=== PATIENT | female | born 1950 | race Caucasian/White ===

== ENCOUNTER 2023-08-16 14:39 | Outpatient (AMB) | payer MEDICARE, SELFPAY ==
--- NOTE | 2023-08-16 14:43 | A.OFFVIS_ITS ---
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 Accompanied by: Self / Same As Patient Allergies benzonatate [From TESSALON PERLES] Allergy (Severe, Verified 08/16/23 14:52) THROAT CLOSES codeine [CODEINE] Allergy (Severe, Verified 08/16/23 14:52) THROAT CLOSES Penicillins [PENICILLINS] Allergy (Intermediate, Verified 08/16/23 14:52) FULL BODY RASH oxycodone Allergy (Unknown, Verified 08/16/23 14:52) Anaphylaxis HPI low back pain/ CONFIRMED 2 HPI0 Details Patient is a pleasant 72 years old female with history of lumbar disc surgery in 1984 at [facility] [place], [place], left ankle fusion 04/04/23 at [facility], chronic low back, cervical and lumbar DDD, polymyalgia rheumatica, presents today with axial low back pain with prolonged standing. Denies any recent trauma, injury or falls. Pain radiates to upper buttocks and lateral hips. Patient had previous lower back and greater trochanteric trigger point injections by Dr. Caldwell at [facility] and lumbar facet asacroiliac joint injections at [facility] with good results. Patient reports previous SIJ injections provided her pain relief for several years. Per referral notes, previous lumbar spine xray showed multilevel degenerative disc disease with severe disc space collapse at L5-S1. MRI of lumbar spine showed no severe stenosis or nerve root impingement. There is slight crowding of the left S1 nerve root at the surgical site. Degenerative joint disease and degenerative disc disease noted. Patient reports these imaging reports were done over 3-5 years ago. She notices her back pain has been progressively worsening and significantly affects her daily activites and functions, sleep, mobility, mood, social interactions and quality of life. Pain is present upon awaking in the morning and is persistent during the day with movements. Denies any fever, weight changes, abdominal or groin pain, bladder or bowel dysfunction or saddle anesthesia. Location Lower back radiating to buttocks and lateral hips Duration Chronic pain for many years Characteristics of symptom or complaint Stabbing, hot burning, radiating, spreading, aching Aggravating or associated factors Prolonged standing, walking, changing positions, weather changes pain 10/10 Relieving factors Rest, sitting, NSAIDs -pain 0-2/10 Treatment PT- 1 year ago no improvement, TPIs and injections, TENS unit at PT [facility] Medical History (Updated 08/17/23 @ 23:14 by DASHAWN Hernandez) Carpal tunnel syndrome Right bundle branch block Polymyalgia rheumatica ALYSSA (obstructive sleep apnea) Hypertension Hyperlipidemia Type 2 diabetes mellitus Social History (Updated 08/16/23 @ 14:54 by Lala Chakraborty) Alcohol intake: current Alcohol intake frequency: holidays/special occasions only Alcohol type: wine Patient Tobacco Use Status: Never used Tobacco Review of Systems Const All systems reviewed & are unremarkable except as noted in HPI and below Physical Exam Vital Signs: Last Vital Signs BP 138/66 08/16/23 14:51 Pulse Ox 99 08/16/23 14:51 Oxygen Delivery Method Room Air 08/16/23 14:51 BMI result Body Mass Index 45.4 General: Appears afebrile. Alert and oriented. Mood and affect appropriate. Follows and participates in conversation appropriately. Respiratory effort is unlabored. No cough. Able to transition from sit to stand unassisted. Ambulates with bilaterally normal heel strike and toe off, except left foot due to recent ankle fusion surgery. Back/Spine/Pelvis Other: Lumbar ROM are limited due to pain, worse pain with extension than flexion. Mildly antalgic gait. No limping. Demonstrates 5/5 strength of quadriceps bilaterally as well as flexion/dorsiflexion of right foot against resistance. Left foot not examined, s/p left ankle fusion. 2+ pedal pulses bilaterally. Seated/Supine straight leg rise with dorsiflexion negative bilaterally. +1 patellar bilateral and +1 achilles reflexes right. Facet loading test positive bilaterally. Chantal sign, Sean?s, Gaenslen, Pelvic compression and Stinchfield tests are positive bilaterally. No groin pain with I/E hip rotations. Mild TTP bilateral GTBs. Valsalva maneuver negative. Cervical Spine: cervical ROM normal and No Cervical spine tenderness Thoracic/Lumbar Spine: thoracic and lumbar spine normal to inspection, Thoracic/lumbar spine scar(s), Lasegue's sign negative, straight leg raise negative bilaterally, pain with thoraco-lumbar ROM, paraspinal muscle tenderness, thoraco-lumbar ROM limited, No thoracic spinal tenderness and lumbar spinal tenderness Pelvis: buttock tenderness bilaterally Sacroiliac joints: bilaterally tender to palpation Results Reviewed Results Reviewed: US TRIPLEX LOWER EXTREMITY, LEFT 07/05/23 at [facility] CLINICAL INFORMATION: Left calf pain and swelling FINDINGS: Respiratory variation, normal compression and vessel patency are noted throughout the visualized deep venous systems of the lower extremity. The visualized common femoral vein, femoral vein, profunda femoral vein, and popliteal vein segments show no evidence for deep vein thrombosis. Limited visualization of the calf veins demonstrates evidence of flow. The contralateral common femoral vein demonstrates normal respiratory variation. There is no Noriega''s cyst. IMPRESSION: No evidence of deep vein thrombosis in the visualized deep venous systems of the left leg. CT ANKLE WITHOUT CONTRAST, LEFT 02/22/23 at [facility] IMPRESSION: Postsurgical changes related to triple arthrodesis. Mild to moderately comminuted intra-articular fracture of the lateral dome of the talus. Prominent osseous bridging across the posterior subtalar joint. Prominent osseous bridging across the talonavicular joint and calcaneal cuboid joint. 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 Assessment & Plan Assessment & Plan (1) Bilateral hip pain: Code(s): M25.551 - Pain in right hip; M25.552 - Pain in left hip (2) Sacroiliac joint pain: Code(s): M53.3 - Sacrococcygeal disorders, not elsewhere classified (3) Lumbar degenerative disc disease: Code(s): M51.36 - Other intervertebral disc degeneration, lumbar region (4) Lumbar post-laminectomy syndrome: Code(s): M96.1 - Postlaminectomy syndrome, not elsewhere classified Plan Lumbar spine and hip with pelvic views imaging to assess degree of degenerative changes, any subluxation, listhesis or pars defects. Briefly discused interventional treatments for axial low back pain, including diagnostic lumbar medial branch blocks for potential Sprint PNS trial or RFA treatments. Informational pamphlets provided to patient. Also discussed sacroiliac joint vs hip injections. Patient's pain is most consistent today with facetogenic and SIJ related pain. Patient will return to the clinic to discuss results of the xray findings when it is done and consider interventional therapy as indicated. All questions and concerns have been answered and patient agreed with the plan. Follow up for xray results and sooner as needed. Orders: Orders 2 XR hip BI w PEL1V 08/16/23 M25.551 - Pain in right hip, M25.552 - Pain in left hip, M53.3 - Sacrococcygeal disorders, not elsewhere classified XR lumbar spine 2-3V 08/16/23 M51.36 - Other intervertebral disc degeneration, lumbar region Coding Level of Care Code New Pt Level 4 (45699) Diagnoses Bilateral hip pain M25.551; M25.552 Sacroiliac joint pain M53.3 Lumbar degenerative disc disease M51.36 Lumbar post-laminectomy syndrome M96.1
[2023-08-16 14:51] VITALS: BP 138/66; O2SAT 99; BMI 45.4
== END 2023-08-16 15:29 | disposition home or self-care (01) ==
PROVIDERS: PCP Internal Medicine; Visit Provider Nurse Practitioner Family
DX: M25.551 Pain in right hip (principal); M25.552 Pain in left hip; M53.3 Sacrococcygeal disorders, not elsewhere classified; M51.36 Other intervertebral disc degeneration, lumbar region; M96.1 Postlaminectomy syndrome, not elsewhere classified
CPT/HCPCS: 99204

== ENCOUNTER 2023-08-16 14:39 | Outpatient (REF) | payer MEDICARE, SELFPAY ==
--- NOTE | ~2023-08-16 | XR_ITS ---
EXAMINATION: XR LUMBOSACRAL SPINE CLINICAL INFORMATION: Pain in lumbar spine COMPARISON: None available. TECHNIQUE: Three views of the lumbosacral spine. FINDINGS: There are multilevel degenerative changes with grade 1 anterior listhesis of L4 over L5 with disc space narrowing, and facets arthropathy is at the level of L2-L3, L3-for L4-L5 L5-S1. Pedicles are preserved. Sacroiliac joints unremarkable. Soft tissues are normal. XR/XR lumbar spine 2-3V IMPRESSION: Multilevel degenerative changes and grade 1 anterior listhesis of L4 over L5
--- NOTE | ~2023-08-16 | XR_ITS ---
EXAMINATION: XR BILATERAL HIPS WITH AP PELVIS CLINICAL INFORMATION: Sacrococcygeal disorder with hip pain COMPARISON: None available. TECHNIQUE: AP view of the pelvis and single views of each hip were obtained. FINDINGS: No fracture. Hip joint spaces are maintained. Alignment is anatomic. Sacroiliac joints and pubic symphysis are normal. No abnormal soft tissue calcifications. XR/XR hip BI w PEL1V IMPRESSION: Normal pelvis and hips.
== END 2023-08-16 14:40 | disposition home or self-care (01) ==
LOC: HO.XRAY 14:39
PROVIDERS: PCP Internal Medicine; Visit Provider Nurse Practitioner Family
DX: M25.551 Pain in right hip (principal); M25.552 Pain in left hip; M51.36 Other intervertebral disc degeneration, lumbar region; M53.3 Sacrococcygeal disorders, not elsewhere classified
CPT/HCPCS: 72100; 73521

== ENCOUNTER 2023-09-01 12:51 | Outpatient (AMB) | payer MEDICARE, SELFPAY ==
--- NOTE | 2023-09-01 13:03 | A.OFFVIS_ITS ---
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 Denies any recent cough, cold, infection, fever or other significant changes in medical history since last office visit. Patient denies any bladder or bowel incontinence or saddle anesthesia. PRIOR: Patient is a pleasant 72 years old female with [place] [facility] [place] ankle fusion 04/04/23 at [facility], chronic low back, cervical and lumbar DDD, polymyalgia rheumatica, presents today with axial low back pain with prolonged standing. Denies any recent trauma, injury or falls. Pain radiates to upper buttocks and lateral hips. Patient had previous lower back and greater trochanteric trigger point injections by Dr. Caldwell at [facility] and lumbar facet asacroiliac joint injections at [facility] with good results. Patient reports previous SIJ injections provided her pain relief for several years. Per referral notes, previous lumbar spine xray showed multilevel degenerative disc disease with severe disc space collapse at L5-S1. MRI of lumbar spine showed no severe stenosis or nerve root impingement. There is slight crowding of the left S1 nerve root at the surgical site. Degenerative joint disease and degenerative disc disease noted. Patient reports these imaging reports were done over 3-5 years ago. She notices her back pain has been progressively worsening and significantly affects her daily activites and functions, sleep, mobility, mood, social interactions and quality of life. Pain is present upon awaking in the morning and is persistent during the day with movements. Denies any fever, weight changes, abdominal or groin pain, bladder or bowel dysfunction or saddle anesthesia. Location Lower back radiating to buttocks and lateral hips Duration Chronic pain for many years Characteristics of symptom or complaint Stabbing, hot burning, radiating, spreading, aching Aggravating or associated factors Prolonged standing, walking, changing positions, weather changes pain 08/30 Relieving factors Rest, sitting, NSAIDs -pain 0-2/10 Treatment PT- 1 year ago no improvement, TPIs and injections, T[facility] unit at [facility] Medical History Carpal tunnel syndrome Right bundle branch block Polymyalgia rheumatica ALYSSA (obstructive sleep apnea) Hypertension Hyperlipidemia Type 2 diabetes mellitus Social History Alcohol intake: current Alcohol intake frequency: holidays/special occasions only Alcohol type: wine Patient Tobacco Use Status: Never used Tobacco Review of Systems Const All systems reviewed & are unremarkable except as noted in HPI and below Physical Exam Vital Signs: Last Vital Signs Pulse 82 09/01/23 13:06 BP 146/70 H 09/01/23 13:06 Pulse Ox 99 09/01/23 13:06 Oxygen Delivery Method Room Air 09/01/23 13:06 BMI result Body Mass Index 45.6 General: Appears afebrile. Alert and oriented. Mood and affect appropriate. Follows and participates in conversation appropriately. Respiratory effort is unlabored. No cough. Able to transition from sit to stand unassisted. Ambulates with bilaterally normal heel strike and toe off, except left foot due to recent ankle fusion surgery. Back/Spine/Pelvis Other: Lumbar ROM are limited due to pain, worse pain with extension than flexion. Chantal sign, Sean?s, Gaenslen, Pelvic compression and Stinchfield tests are positive bilaterally. No groin pain with I/E hip rotations. Mild TTP bilateral GTBs. Valsalva maneuver negative. Cervical Spine: cervical ROM normal and No Cervical spine tenderness Thoracic/Lumbar Spine: thoracic and lumbar spine normal to inspection, Thoracic/lumbar spine scar(s), Lasegue's sign negative, straight leg raise negative bilaterally, pain with thoraco-lumbar ROM, paraspinal muscle tenderness, thoraco-lumbar ROM limited, No thoracic spinal tenderness and lumbar spinal tenderness Pelvis: buttock tenderness bilaterally and no sciatic notch tenderness Sacroiliac joints: bilaterally tender to palpation Results Reviewed Results Reviewed: XR LUMBOSACRAL SPINE 08/16/23 FINDINGS: There are multilevel degenerative changes with grade 1 anterior listhesis of L4 over L5 with disc space narrowing, and facets arthropathy is at the level of L2-L3, L3-for L4-L5 L5-S1. Pedicles are preserved. Sacroiliac joints unremarkable. Soft tissues are normal. IMPRESSION: Multilevel degenerative changes and grade 1 anterior listhesis of L4 over L5 XR BILATERAL HIPS WITH AP PELVIS 08/16/23 FINDINGS: No fracture. Hip joint spaces are maintained. Alignment is anatomic. Sacroiliac joints and pubic symphysis are normal. No abnormal soft tissue calcifications. IMPRESSION: Normal pelvis and hips. Assessment & Plan Assessment & Plan (1) Bilateral hip pain: Code(s): M25.551 - Pain in right hip; M25.552 - Pain in left hip (2) Sacroiliac joint pain: Code(s): M53.3 - Sacrococcygeal disorders, not elsewhere classified (3) Lumbar degenerative disc disease: Code(s): M51.36 - Other intervertebral disc degeneration, lumbar region (4) Lumbar post-laminectomy syndrome: Code(s): M96.1 - Postlaminectomy syndrome, not elsewhere classified Plan Lumbar spine and hip with pelvic imaging results were discussed with patient and are noted above. Per patient's referral review, patient has undergone bilateral L4/L5 and L5/S1 facet injections and therapeutic left SIJ injections at [facility] as well as greater trochanteric trigger point injections by Dr. Caldwell at [facility] with good results. She is interested to proceed with therapeutic injections for her chronic SIJ pain. For ongoing low back pain with radiation into upper buttocks and lateral hips, we will proceed with Bilateral Therapeutic Sacroiliac Joint Injections with local and fluoroscopy. Expectations, risks and benefits were reviewed. Patient is aware she will be contacted to schedule this procedure. Counseled patient on vigilance in checking and treatment of hyperglycemia following steroid injection. All questions were answered and the patient is in agreement of plan. Follow-up after injections and sooner as needed. Coding Level of Care Code Est Pt Level 4 (19707) Diagnoses Bilateral hip pain M25.551; M25.552 Sacroiliac joint pain M53.3 Lumbar degenerative disc disease M51.36 Lumbar post-laminectomy syndrome M96.1
[2023-09-01 13:06] VITALS: BP 146/70; PULSE 82; O2SAT 99; BMI 45.6
== END 2023-09-01 13:26 | disposition home or self-care (01) ==
PROVIDERS: PCP Internal Medicine; Visit Provider Nurse Practitioner Family
DX: M25.551 Pain in right hip (principal); M25.552 Pain in left hip; M53.3 Sacrococcygeal disorders, not elsewhere classified; M51.36 Other intervertebral disc degeneration, lumbar region; M96.1 Postlaminectomy syndrome, not elsewhere classified
CPT/HCPCS: 99214

== ENCOUNTER → 2023-09-01 12:51 | Outpatient (BNVA) | payer MEDICARE, SELFPAY | PROVIDERS: PCP Internal Medicine; Visit Provider Nurse Practitioner Family | DX: M25.551 Pain in right hip (principal); M25.552 Pain in left hip; M53.3 Sacrococcygeal disorders, not elsewhere classified; M51.36 Other intervertebral disc degeneration, lumbar region; M96.1 Postlaminectomy syndrome, not elsewhere classified | CPT/HCPCS: 99212 ==

== ENCOUNTER 2023-10-12 05:57 | Outpatient (REF) | payer MEDICARE, SELFPAY ==
--- NOTE | ~2023-10-12 | FL_ITS ---
EXAMINATION: XR FLUOROSCOPY WITH IMAGES CLINICAL INFORMATION: Sacrococcygeal disorders, not elsewhere classified. Bilateral sacroiliac joint injection. COMPARISON: None available. TECHNIQUE: Fluoroscopy Supervised By: Dr. Dontrell Becerril. Fluoroscopy Time: 0.2 minutes. Cumulative Dose: 15.2 mGy. DAP: 1.18 Gycm2. Images: 4. FINDINGS: Images demonstrate needle placement over the bilateral sacroiliac joints FL/FL guidance in treatment room IMPRESSION: Fluoroscopy guidance for pain management procedure
== END 2023-10-12 05:58 | disposition home or self-care (01) ==
LOC: CF 05:57
PROVIDERS: Visit Provider Internal Medicine
DX: M53.3 Sacrococcygeal disorders, not elsewhere classified (principal)
CPT/HCPCS: 27096; J1040; J2795

== ENCOUNTER 2023-10-12 07:37 | Outpatient (AMB) | payer MEDICARE, SELFPAY ==
[2023-10-12 07:42] VITALS: BP 122/70; PULSE 75; RESP 16; O2SAT 96; BMI 45.6
--- NOTE | 2023-10-12 07:42 | A.OFFVIS_ITS ---
Intake Vital Signs 10/12/23 07:42 10/12/23 08:36 Height 4 ft 10 in 4 ft 10 in Weight 218 lb 218 lb BMI 45.6 45.6 BP 122/70 128/72 Blood Pressure Location Lt radial Lt brachial Position Sitting Sitting Respiration 16 18 Pulse 75 80 Pulse Source Pulse Oximeter Pulse Oximeter Pulse Oximetry (%) 96 98 Oxygen Delivery Method Room Air Room Air Comment Pre-Op Post-Op Intake Visit Reasons: Dino theraputic SIJ inj Allergies benzonatate [From TESSALON PERLES] Allergy (Severe, Verified 09/01/23 13:07) THROAT CLOSES codeine [CODEINE] Allergy (Severe, Verified 09/01/23 13:07) THROAT CLOSES Penicillins [PENICILLINS] Allergy (Intermediate, Verified 09/01/23 13:07) FULL BODY RASH oxycodone Allergy (Unknown, Verified 09/01/23 13:07) Anaphylaxis HPI Dino theraputic SIJ inj HPI Details Patient presents for scheduled procedure. Denies any recent cough, cold, infection, fever or other significant changes in medical history since last office visit. [facility] Medical History Carpal tunnel syndrome Right bundle branch block Polymyalgia rheumatica ALYSSA (obstructive sleep apnea) Hypertension Hyperlipidemia Type 2 diabetes mellitus Alcohol intake: current Alcohol intake frequency: holidays/special occasions only Alcohol type: wine Patient Tobacco Use Status: Never used Tobacco Physical Exam Vital Signs: Last Vital Signs Pulse 75 10/12/23 07:42 Resp 16 10/12/23 07:42 BP 122/70 10/12/23 07:42 Pulse Ox 96 10/12/23 07:42 Oxygen Delivery Method Room Air 10/12/23 07:42 BMI result Body Mass Index 45.6 Office Procedures Joint Injection/Drain Joint Injection/Drain Details: Sacroiliac Joint Injection, Bilateral The procedure, its benefits, and its risks were explained and written informed consent was obtained from the patient. Immediately prior to starting the procedure, a time-out safety check was conducted. The patient's identification, procedure name, procedure site, and procedure laterality were confirmed with the patient. ? Patient was placed prone on the fluoroscopy table and the lumbosacral area was prepped using ChloraPrep and draped with sterile drapein standard fashion. The C-arm was rotated in a contralateral oblique fashion until the medial border of the iliac crest no longer foreshadowed the posterior sacroiliac joint line. The skin and subcutaneous tissue was anesthetized using 1 mL of 0.75% plain lidocaine with 1.5-inch 25-gauge needle in the middle region of the joint line.? A 3.5-inch 22-gauge spinal needle with small bend on the tip was slowly advanced towards the joint line, coaxial to the x-ray beam. Once bony content was obtained, the needle was easily slid into the intra-articular space.? Intra- articular needle position was confirmed using lateral fluoroscopy.? A total volume of 2 mL of solution containing 40 mg Depomedrol and rest 0.75% lidocaine was injected intra-articularly. The stylet was reinserted and needle was removed. The same procedure was repeated on the other side. The patient tolerated the procedure well. Patient denied any lower extremity weakness or numbness. Patient was observed for 30 min and was discharged after fulfilling the standard discharge criteria. Coding 85131 - Sacroiliac (bilateral) Procedure code (CPT) selection complete Assessment & Plan Assessment & Plan (1) Sacroiliac joint pain: Code(s): M53.3 - Sacrococcygeal disorders, not elsewhere classified Plan Patient is status post bilateral intra-articular SIJ injection. Patient tolerated procedure well and was discharged home in stable condition with discharge instructions. All questions were answered. We will follow-up via telephone or in clinic to assess response to therapy. A follow-up appointment was made during today's visit. Orders: Orders FL guidance in treatment room Today M53.3 - Sacrococcygeal disorders, not elsewhere classified Coding Level of Care Code Procedure Only Diagnoses Sacroiliac joint pain M53.3 CPT Codes Coding - Joint 9: 55459 - Sacroiliac ([id number])
[2023-10-12 08:36] VITALS: BP 128/72; PULSE 80; RESP 18; O2SAT 98; BMI 45.6
== END 2023-10-12 08:28 | disposition home or self-care (01) ==
LOC: HO.PMCPRC 07:37
PROVIDERS: PCP Internal Medicine; Visit Provider Internal Medicine
DX: M53.3 Sacrococcygeal disorders, not elsewhere classified (principal)
CPT/HCPCS: 27096

== ENCOUNTER 2023-10-20 08:21 | Outpatient (AMB) | payer MEDICARE, SELFPAY ==
--- NOTE | 2023-10-20 08:27 | MHC.OFFVIS ---
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 Required: No Accompanied by: Self / Same As Patient Allergies benzonatate [From TESSALON PERLES] Allergy (Severe, Verified 09/01/23 13:07) THROAT CLOSES codeine [CODEINE] Allergy (Severe, Verified 09/01/23 13:07) THROAT CLOSES Penicillins [PENICILLINS] Allergy (Intermediate, Verified 09/01/23 13:07) FULL BODY RASH oxycodone Allergy (Unknown, Verified 09/01/23 13:07) Anaphylaxis Medication List - Last Reconciled 10/20/23 by DASHAWN Hernandez diclofenac sodium 1% (Arthritis Pain (diclofenac)) 4 grams topical QID hydrochlorothiazide 25 mg PO DAILY losartan 50 mg PO DAILY meloxicam 7.5 mg PO DAILY metformin 1,000 mg PO BID pioglitazone 30 mg PO DAILY HPI HPI Comments History of Present Illness Details Patient presents today to assess response to Bilateral Therapeutic Sacroiliac Joint Injections on 10/12/[address] Becerril. Patient reports ongoing 70-80% pain relief in the projection of lower back but continues to endorse bilateral lateral hip pain. Upon exam, she has significant localized tenderness in both greater trochanteric bursas. Patient reports improvement in her mobility and functioning after sacroiliac joint injection but continues to be uncomfortable with sitting or sleeping on her sides due to lateral hip pain on both sides. Patient also reports ongoing left foot and ankle discomfort since left ankle fusion in March. She follows with [facility] for this. Patient is interested to undergo formal course of physical therapy for sacroiiac joint pain and ongoing left foot pain. Denies any recent cough, cold, infection, fever or other significant changes in medical history since last office visit. Patient denies any bladder or bowel incontinence or saddle anesthesia. Past Procedures: 10/12/23: Bilateral Therapeutic Sacroiliac Joint [id number]% pain relief PRIOR: Patient is a pleasant 72 years old female with history of lumbar disc surgery in 1984 at [facility], left ankle fusion 04/04/23 at [facility], chronic low back, cervical and lumbar DDD, polymyalgia rheumatica, presents today with axial low back pain with prolonged standing. Denies any recent trauma, injury or falls. Pain radiates to upper buttocks and lateral hips. Patient had previous lower back and greater trochanteric trigger point injections by Dr. Caldwell at [facility] and lumbar facet asacroiliac joint injections at [facility] with good results. Patient reports previous SIJ injections provided her pain relief for several years. Per referral notes, previous lumbar spine xray showed multilevel degenerative disc disease with severe disc space collapse at L5-S1. MRI of lumbar spine showed no severe stenosis or nerve root impingement. There is slight crowding of the left S1 nerve root at the surgical site. Degenerative joint disease and degenerative disc disease noted. Patient reports these imaging reports were done over 3-5 years ago. She notices her back pain has been progressively worsening and significantly affects her daily activites and functions, sleep, mobility, mood, social interactions and quality of life. Pain is present upon awaking in the morning and is persistent during the day with movements. Denies any fever, weight changes, abdominal or groin pain, bladder or bowel dysfunction or saddle anesthesia. Location Lower back radiating to buttocks and lateral hips Duration Chronic pain for many years Characteristics of symptom or complaint Stabbing, hot burning, radiating, spreading, aching Aggravating or associated factors Prolonged standing, walking, changing positions, weather changes pain 10/10 Relieving factors Rest, sitting, NSAIDs -pain 0-2/10 Treatment PT- 1 year ago no improvement, TPIs and injections, TENS unit at PT [facility] Medical History (Updated 10/20/23 @ 08:50 by DASHAWN Hernandez) Carpal tunnel syndrome Right bundle branch block Polymyalgia rheumatica ALYSSA (obstructive sleep apnea) Hypertension Hyperlipidemia Type 2 diabetes mellitus Surgical History (Updated 10/20/23 @ 08:50 by DASHAWN Hernandez) S/P foot surgery, left Social History Alcohol intake: current Alcohol intake frequency: holidays/special occasions only Alcohol type: wine Patient Tobacco Use Status: Never used Tobacco Review of Systems Const All systems reviewed & are unremarkable except as noted in HPI and below Physical Exam Vital Signs: Last Vital Signs Pulse 69 10/20/23 08:31 BP 146/69 H 10/20/23 08:31 Pulse Ox 97 10/20/23 08:31 Oxygen Delivery Method Room Air 10/20/23 08:31 BMI result Body Mass Index 45.8 General: Appears afebrile. Alert and oriented. Mood and affect appropriate. Follows and participates in conversation appropriately. Respiratory effort is unlabored. No cough. Able to transition from sit to stand unassisted. Uses cane with ambulation. Ambulates with bilaterally normal heel strike and toe off, except left foot due to ankle fusion surgery in March. Back/Spine/Pelvis Other: Lumbar ROM are limited due to mild pain with extension. Sean's test reproduces mild pain bilaterally s/p therapeutic injections. No groin pain with I/E hip rotations. Moderate to severe TTP bilateral GTBs. Cervical Spine: cervical ROM normal and No Cervical spine tenderness Thoracic/Lumbar Spine: thoracic and lumbar spine normal to inspection, Thoracic/lumbar spine scar(s), Lasegue's sign negative, straight leg raise negative bilaterally, thoraco-lumbar ROM limited, No thoracic spinal tenderness and lumbar spinal tenderness at L4 and at L5 Sacroiliac joints: bilaterally tender to palpation Extrem General: Yes capillary refill normal, Yes no calf tenderness, No clubbing, No cyanosis and Yes pedal edema (left foot) Results Reviewed Results Reviewed: XR LUMBOSACRAL SPINE 08/16/23 FINDINGS: There are multilevel degenerative changes with grade 1 anterior listhesis of L4 over L5 with disc space narrowing, and facets arthropathy is at the level of L2-L3, L3-for L4-L5 L5-S1. Pedicles are preserved. Sacroiliac joints unremarkable. Soft tissues are normal. IMPRESSION: Multilevel degenerative changes and grade 1 anterior listhesis of L4 over L5 XR BILATERAL HIPS WITH AP PELVIS 08/16/23 FINDINGS: No fracture. Hip joint spaces are maintained. Alignment is anatomic. Sacroiliac joints and pubic symphysis are normal. No abnormal soft tissue calcifications. IMPRESSION: Normal pelvis and hips. Assessment & Plan Assessment & Plan (1) Greater trochanteric bursitis of both hips: Code(s): M70.61 - Trochanteric bursitis, right hip; M70.62 - Trochanteric bursitis, left hip (2) Bilateral hip pain: Code(s): M25.551 - Pain in right hip; M25.552 - Pain in left hip (3) Sacroiliac joint pain: Code(s): M53.3 - Sacrococcygeal disorders, not elsewhere classified (4) Left foot pain: Code(s): M79.672 - Pain in left foot (5) S/P foot surgery, left: Code(s): Z98.890 - Other specified postprocedural states Plan Patient is status post bilateral therapeutic SIJ injections on 10/12/23 with good results. She will continue to monitor longevity and effectiveness of steroid injections and notify our office when her pain returns to baseline. Script for physical therapy provided for SIJ, GTB tenderness and left foot pain to be done at [facility] per patient's request. Schedule Bilateral Therapeutic GTB steroid injections with local and US guidance for lateral hip and GTB tenderness. Counseled patient on vigilance in checking and treatment of hyperglycemia following steroid injection. Hold Meloxicam for 5 days prior to injections. Expectations, risks and benefits were reviewed. Patient is aware she will be contacted to schedule this procedure. All questions were answered and the patient is in agreement of plan. Follow-up after injections and sooner as needed. Orders: Orders PT Evaluation and Treatment Today M25.551 - Pain in right hip, M25.552 - Pain in left hip, M53.3 - Sacrococcygeal disorders, not elsewhere classified, M70.61 - Trochanteric bursitis, right hip, M70.62 - Trochanteric bursitis, left hip, M79.672 - Pain in left foot, Z98.890 - Other specified postprocedural states Medications: New diclofenac sodium 1% (Arthritis Pain (diclofenac)) 4 grams topical QID 100 grams 0RF pain M70.61 - Trochanteric bursitis, right hip, M70.62 - Trochanteric bursitis, left hip Coding Level of Care Code Est Pt Level 4 (28202) Diagnoses Greater trochanteric bursitis of both hips M70.61; M70.62 Bilateral hip pain M25.551; M25.552 Sacroiliac joint pain M53.3 Left foot pain M79.672 S/P foot surgery, left Z98.890
[2023-10-20 08:31] VITALS: BP 146/69; PULSE 69; O2SAT 97; BMI 45.8
== END 2023-10-20 08:53 | disposition home or self-care (01) ==
PROVIDERS: PCP Internal Medicine; Visit Provider Nurse Practitioner Family
DX: M70.61 Trochanteric bursitis, right hip (principal); M70.62 Trochanteric bursitis, left hip; M25.551 Pain in right hip; M25.552 Pain in left hip; M53.3 Sacrococcygeal disorders, not elsewhere classified; M79.672 Pain in left foot; Z98.890 Other specified postprocedural states
CPT/HCPCS: 99214

== ENCOUNTER → 2023-10-20 08:21 | Outpatient (BNVA) | payer MEDICARE, SELFPAY | PROVIDERS: PCP Internal Medicine; Visit Provider Nurse Practitioner Family | DX: M70.61 Trochanteric bursitis, right hip (principal); M70.62 Trochanteric bursitis, left hip; M25.551 Pain in right hip; M25.552 Pain in left hip; M53.3 Sacrococcygeal disorders, not elsewhere classified; M79.672 Pain in left foot; Z98.890 Other specified postprocedural states | CPT/HCPCS: 99212 ==

== ENCOUNTER 2023-11-30 05:42 | Outpatient (REF) | payer MEDICARE, SELFPAY ==
--- NOTE | ~2023-11-30 | FL_ITS ---
CLINICAL INDICATION: Bilateral hip pain. Trochanteric bursitis. FINDINGS: Technical assistance and equipment were provided by the Department of Radiology during intraoperative fluoroscopy for percutaneous injection. 2, limited fluoroscopic spot images are submitted. A radiologist was not present during the procedure. Images demonstrate the tips of percutaneous needles to project just lateral to the greater trochanters of each of the hips. Contrast is injected. The images are available for review on PACS. TOTAL FLUOROSCOPY TIME: 0.1 minutes. DOSE AREA PRODUCT: 0.02 mGy-m2 (milligray-meter squared) FL/FL guidance in treatment room IMPRESSION: Technical assistance and equipment provided by the Department of Radiology during intraoperative fluoroscopy, as above. Please see operative report for further details.
== END 2023-11-30 05:43 | disposition home or self-care (01) ==
LOC: CF 05:42
PROVIDERS: Visit Provider Internal Medicine
DX: M70.61 Trochanteric bursitis, right hip (principal); M70.62 Trochanteric bursitis, left hip
CPT/HCPCS: 20610; J2795; J3301; Q9967

== ENCOUNTER 2023-11-30 08:01 | Outpatient (AMB) | payer MEDICARE, SELFPAY ==
[2023-11-30 08:04] VITALS: BP 120/62; PULSE 82; RESP 12; O2SAT 95
--- NOTE | 2023-11-30 08:04 | MHC.OFFVIS ---
Intake Vital Signs 11/30/23 08:04 11/30/23 08:29 BP 120/62 110/62 Blood Pressure Location Rt radial Rt radial Position Sitting Sitting Respiration 12 12 Pulse 82 89 Pulse Source Pulse Oximeter Pulse Oximeter Pulse Oximetry (%) 95 95 Oxygen Delivery Method Room Air Room Air Intake Visit Reasons: Dino theraputic GTB inj Allergies benzonatate [From TESSALON PERLES] Allergy (Severe, Verified 11/30/23 08:04) THROAT CLOSES codeine [CODEINE] Allergy (Severe, Verified 11/30/23 08:04) THROAT CLOSES Penicillins [PENICILLINS] Allergy (Intermediate, Verified 11/30/23 08:04) FULL BODY RASH oxycodone Allergy (Unknown, Verified 11/30/23 08:04) Anaphylaxis HPI Dino theraputic GTB inj HPI Details Patient presents for scheduled procedure. Denies any recent cough, cold, infection, fever or other significant changes in medical history since last office visit. [facility] Medical History (Updated 10/20/23 @ 08:50 by DASHAWN Hernandez) Carpal tunnel syndrome Right bundle branch block Polymyalgia rheumatica ALYSSA (obstructive sleep apnea) Hypertension Hyperlipidemia Type 2 diabetes mellitus Surgical History (Updated 10/20/23 @ 08:50 by DASHAWN Hernandez) S/P foot surgery, left Social History Alcohol intake: current Alcohol intake frequency: holidays/special occasions only Alcohol type: wine Patient Tobacco Use Status: Never used Tobacco Physical Exam Vital Signs: Last Vital Signs Pulse 89 11/30/23 08:29 Resp 12 11/30/23 08:29 BP 110/62 11/30/23 08:29 Pulse Ox 95 11/30/23 08:29 Oxygen Delivery Method Room Air 11/30/23 08:29 Office Procedures Joint Injection/Drain Joint Injection/Drain Details: Greater Trochanteric Bursa Injection, Bilateral After informed written consent was obtained, the patient was placed in the supine position. Pre-procedure oxygen saturation, heart rate, and blood pressure were recorded. The skin was prepped with Chloroprep, and draped in a sterile fashion. With the use of fluroscopy the greater trochanter was identified. With a 25-gauge 1.5 hypodermic needle 1% lidocaine was injected subcutaneously over the entry site. A 22-gauge 3.5 spinal needle was then advanced toward the trochanteric bursa. Once in position, and after negative aspiration, 0.5mL of Omnipaque was injected outlining the bursa followed by injection of 40mg Kenalog mixed with 0.5% ropivcaine (3mL total). There was no evidence of paresthesias throughout needle placement. The stylet was replaced and then the needle was withdrawn. The same procedure was repeated on the other side. The patient tolerated the procedure well and there was no evidence of procedural complications. The patient was observed in the procedure room for 20 minutes, vitals were stable, and discharged in stable condition. Coding 34736 - Glenohumeral/Tronchanteric Bursa/Intraarticular (bilateral) Procedure code (CPT) selection complete Assessment & Plan Assessment & Plan (1) Greater trochanteric bursitis of both hips: Code(s): M70.61 - Trochanteric bursitis, right hip; M70.62 - Trochanteric bursitis, left hip Plan Patient is status post bilateral therapeutic GTB injections. Patient tolerated procedure well and was discharged home in stable condition with discharge instructions. All questions were answered. We will follow-up via telephone or in clinic to assess response to therapy. A follow-up appointment was made during today's visit. Orders: Orders FL guidance in treatment room Today M70.61 - Trochanteric bursitis, right hip, M70.62 - Trochanteric bursitis, left hip Coding Level of Care Code Procedure Only Diagnoses Greater trochanteric bursitis of both hips M70.61; M70.62 CPT Codes Coding - Joint 7: 39751 - Glenohumeral/Tronchanteric Bursa/Intraarticular ([id number])
[2023-11-30 08:29] VITALS: BP 110/62; PULSE 89; RESP 12; O2SAT 95
== END 2023-11-30 08:26 | disposition home or self-care (01) ==
LOC: HO.PMCPRC 08:01
PROVIDERS: PCP Internal Medicine; Visit Provider Internal Medicine
DX: M70.61 Trochanteric bursitis, right hip (principal); M70.62 Trochanteric bursitis, left hip
CPT/HCPCS: 20610; 77002

== ENCOUNTER 2023-12-29 08:38 | Outpatient (AMB) | payer MEDICARE, SELFPAY ==
--- NOTE | 2023-12-29 08:44 | MHC.OFFVIS ---
Intake Vital Signs 12/29/23 08:45 Height 4 ft 10 in Weight 221 lb BMI 46.2 BP 127/60 Blood Pressure Location Lt brachial Position Sitting Respiration 16 Pulse 76 Pulse Source Pulse Oximeter Pulse Oximetry (%) 98 Oxygen Delivery Method Room Air Intake Visit Reasons: s/p austin theraputic GTB inj/lvm Allergies benzonatate [From TESSALON PERLES] Allergy (Severe, Verified 12/29/23 08:45) THROAT CLOSES codeine [CODEINE] Allergy (Severe, Verified 12/29/23 08:45) THROAT CLOSES Penicillins [PENICILLINS] Allergy (Intermediate, Verified 12/29/23 08:45) FULL BODY RASH oxycodone Allergy (Unknown, Verified 12/29/23 08:45) Anaphylaxis Medication List - Last Reconciled 12/29/23 by DASHAWN Hernandez diclofenac sodium 1% (Arthritis Pain (diclofenac)) 4 grams topical QID glipizide 5 mg PO BID hydrochlorothiazide 25 mg PO DAILY losartan 50 mg PO DAILY meloxicam 7.5 mg PO DAILY metformin 1,000 mg PO BID pioglitazone 30 mg PO DAILY HPI HPI Comments History of Present Illness Details Patient presents today to assess response to Bilateral Therapeutic GTB Injections on 11/30/[address] Becerril. Patient reports ongoing 100% pain relief in the projection of bilateral lateral hip pain. Patient reports improved daily functioniong, mobility and sleep. Patient reports she completed physical therapy about 10 sessions for left foot pain at [facility]. She reports 2/10 pain in her lower back and sacroiliac joint areas bilaterally. She is interested to pursue PT for low back pain. Patient continues to reports 80% pain relief since her SIJ injections in September 2023. She does report spike in her A1C since therapeutic injections, reports A1C of 8.2 in October. Patient reports she was started on Jardiance but developed significant constipation and was switched back to Glipizide. Counseled patient on vigilance in checking and treatment of hyperglycemia following steroid injections. Patient reports her fasting blood sugar was 111 this morning. Denies any recent cough, cold, infection, fever or other significant changes in medical history since last office visit. Patient denies any bladder or bowel incontinence or saddle anesthesia. Past Procedures: 11/30/23: Bilateral Therapeutic GTB Injections -100% pain relief 10/12/23: Bilateral Therapeutic Sacroiliac Joint [id number]-60-64% pain relief PRIOR: Patient is a pleasant 72 years old female with history of lumbar disc surgery in 1984 at [facility], left ankle fusion 04/04/23 at [facility], chronic low back, cervical and lumbar DDD, polymyalgia rheumatica, presents today with axial low back pain with prolonged standing. Denies any recent trauma, injury or falls. Pain radiates to upper buttocks and lateral hips. Patient had previous lower back and greater trochanteric trigger point injections by Dr. Caldwell at [facility] and lumbar facet asacroiliac joint injections at [facility] with good results. Patient reports previous SIJ injections provided her pain relief for several years. Per referral notes, previous lumbar spine xray showed multilevel degenerative disc disease with severe disc space collapse at L5-S1. MRI of lumbar spine showed no severe stenosis or nerve root impingement. There is slight crowding of the left S1 nerve root at the surgical site. Degenerative joint disease and degenerative disc disease noted. Patient reports these imaging reports were done over 3-5 years ago. She notices her back pain has been progressively worsening and significantly affects her daily activites and functions, sleep, mobility, mood, social interactions and quality of life. Pain is present upon awaking in the morning and is persistent during the day with movements. Denies any fever, weight changes, abdominal or groin pain, bladder or bowel dysfunction or saddle anesthesia. Location Lower back radiating to buttocks and lateral hips Duration Chronic pain for many years Characteristics of symptom or complaint Stabbing, hot burning, radiating, spreading, aching Aggravating or associated factors Prolonged standing, walking, changing positions, weather changes pain 10/10 Relieving factors Rest, sitting, NSAIDs -pain 0-2/10 Treatment PT- 1 year ago no improvement, TPIs and injections, TENS unit at PT [facility] Medical History Carpal tunnel syndrome Right bundle branch block Polymyalgia rheumatica ALYSSA (obstructive sleep apnea) Hypertension Hyperlipidemia Type 2 diabetes mellitus Surgical History S/P foot surgery, left Social History Alcohol intake: current Alcohol intake frequency: holidays/special occasions only Alcohol type: wine Patient Tobacco Use Status: Never used Tobacco Review of Systems Const All systems reviewed & are unremarkable except as noted in HPI and below Physical Exam General: Appears afebrile. Alert and oriented. Mood and affect appropriate. Follows and participates in conversation appropriately. Respiratory effort is unlabored. No cough. Able to transition from sit to stand unassisted. Uses cane with ambulation. Ambulates with bilaterally normal heel strike and toe off, except left foot due to ankle fusion in 03/2023. Back/Spine/Pelvis Cervical Spine: cervical ROM normal and No Cervical spine tenderness Thoracic/Lumbar Spine: thoracic and lumbar spine normal to inspection, Thoracic/lumbar spine scar(s), Lasegue's sign negative, straight leg raise negative bilaterally, pain with thoraco-lumbar ROM, paraspinal muscle tenderness, thoraco-lumbar ROM limited, No thoracic spinal tenderness and lumbar spinal tenderness at L4 and at L5 Sacroiliac joints: bilaterally (+Sean's test bilaterally, left>right) tender to palpation (mild) Extrem General: Yes capillary refill normal, Yes no clubbing, cyanosis or edema and Yes no calf tenderness Results Reviewed Results Reviewed: XR LUMBOSACRAL SPINE 08/16/23 FINDINGS: There are multilevel degenerative changes with grade 1 anterior listhesis of L4 over L5 with disc space narrowing, and facets arthropathy is at the level of L2-L3, L3-for L4-L5 L5-S1. Pedicles are preserved. Sacroiliac joints unremarkable. Soft tissues are normal. IMPRESSION: Multilevel degenerative changes and grade 1 anterior listhesis of L4 over L5 XR BILATERAL HIPS WITH AP PELVIS 08/16/23 FINDINGS: No fracture. Hip joint spaces are maintained. Alignment is anatomic. Sacroiliac joints and pubic symphysis are normal. No abnormal soft tissue calcifications. IMPRESSION: Normal pelvis and hips. Assessment & Plan Assessment & Plan (1) Greater trochanteric bursitis of both hips: Code(s): M70.61 - Trochanteric bursitis, right hip; M70.62 - Trochanteric bursitis, left hip (2) Sacroiliac joint pain: Code(s): M53.3 - Sacrococcygeal disorders, not elsewhere classified (3) Lumbar post-laminectomy syndrome: Code(s): M96.1 - Postlaminectomy syndrome, not elsewhere classified (4) Low back pain: Code(s): M54.50 - Low back pain, unspecified (5) Lumbar degenerative disc disease: Code(s): M51.36 - Other intervertebral disc degeneration, lumbar region Plan Patient is status post bilateral therapeutic GTB injections on 11/30/23 with good results and improvement in her daily functioning, mobility and sleep. Patient will continue to monitor longevity and effectiveness of steroid injections and notify our office when her pain returns to baseline. Counseled patient on vigilance in checking and treatment of hyperglycemia following steroid injections. She reports compliance with her medical regime and diet for DM control. Reports fasting blood sugar of 111 this morning. Script for physical therapy provided for low back and sacroiliac joint pain at [facility] [place] [facility] Patient is 3 months s/p SIJ injections and will notify our office to reschedule injections when her SIJ pain returns to baseline. All questions were answered and the patient is in agreement of plan. Follow-up after PT and sooner as needed. Orders: Orders PT Evaluation and Treatment Today M53.3 - Sacrococcygeal disorders, not elsewhere classified, M54.50 - Low back pain, unspecified, M96.1 - Postlaminectomy syndrome, not elsewhere classified Coding Level of Care Code Est Pt Level 3 (08155) Diagnoses Greater trochanteric bursitis of both hips M70.61; M70.62 Sacroiliac joint pain M53.3 Lumbar post-laminectomy syndrome M96.1 Low back pain M54.50 Lumbar degenerative disc disease M51.36
[2023-12-29 08:45] VITALS: BP 127/60; PULSE 76; RESP 16; O2SAT 98; BMI 46.2
== END 2023-12-29 09:09 | disposition home or self-care (01) ==
PROVIDERS: PCP Internal Medicine; Visit Provider Nurse Practitioner Family
DX: M70.61 Trochanteric bursitis, right hip (principal); M70.62 Trochanteric bursitis, left hip; M53.3 Sacrococcygeal disorders, not elsewhere classified; M96.1 Postlaminectomy syndrome, not elsewhere classified; M54.50 Low back pain, unspecified; M51.36 Other intervertebral disc degeneration, lumbar region
CPT/HCPCS: 99213

== ENCOUNTER → 2023-12-29 08:38 | Outpatient (BNVA) | payer MEDICARE, SELFPAY | PROVIDERS: PCP Internal Medicine; Visit Provider Nurse Practitioner Family | DX: M70.61 Trochanteric bursitis, right hip (principal); M70.62 Trochanteric bursitis, left hip; M53.3 Sacrococcygeal disorders, not elsewhere classified; M96.1 Postlaminectomy syndrome, not elsewhere classified; M54.50 Low back pain, unspecified; M51.36 Other intervertebral disc degeneration, lumbar region | CPT/HCPCS: 99212 ==

== ENCOUNTER 2024-03-01 11:00 | Outpatient (RCR) | payer MEDICARE, SELFPAY ==
--- NOTE | 2024-01-04 11:59 | MHC.PT.EP ---
[facility] [place] Office [place] Office [place] Office [address] Jose Newell [address] [phone] F: [phone] F: [phone] F: [phone] F: [phone] Physical Therapy Plan of Care Date of Evaluation: 01/04/24 Date of Surgery: back 1984. ankle 2022 Diagnosis: post laminectomy syndrome - low back pain Assessment: Patient is a 73 year old R handed female who presents with s/s consistent with post laminectomy syndrome, low back pain. She does not work and has been fairly sedentary for quite some time. Patient past medical history includes multiple surgeries, including L ankle fusion, HTN, and DM. Current impairments include pain, posture, flexibility, ROM, gait mechanics, strength, activity tolerance and functional mobility. 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 Patient is motivated with good rehab potential. Skilled PT will address impairments and functional limitations in order to achieve goals. 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 Manual therapy to restore motion and function. Therapeutic exercise to improve strength and flexibility. Neuromuscular re-education for posture and balance. Therapeutic activities to return to functional activities of daily living. Electronically signed by: Germán Blackmon, PT Please sign and return to therapist. Thank you for your referral.
--- NOTE | 2024-07-31 10:45 | MHC.PT.DC ---
[facility] [place] Office [place] [facility] [place] [facility] [address] Jose Newell [address] [phone] F: [phone] F: [phone] F: [phone] F: [phone] Physical Therapy Discharge Report Diagnosis: post laminectomy syndrome - low back pain Date of Surgery: back 1984. ankle 2022 Date of Evaluation: 01/04/24 Date of Discharge: 03/23/24 Treatments to Date: 11 Cancellations to Date: No Shows to Date: Discharge Status: Independent with HEP Discharge Summary: 03/01; Pt I with exs. Pt conts with L>R L/S and hp pain. Pt has increased rotation and is anle to stand and walk for 10 min before pain increases. Hip strength 5-. Pt DC with hEP. 02/27; Pt c/o hip > L/S pain today. Pt I with HEP. Pt has 1 remaining PT visit. Pt 02/15; Pt c/o ankle pain with standing exs, performed on table. Pt feels manual is reducing her tightness L/S. 02/13; Pt has palpable nodule L glut with marked tenderness with relief noted after RX. Pt prefers trable exs over WB due to pain in ankl. 02/10/24: pt with increased tissue tension. continues to respond well to manual intervention and notes improved standing tolerance. 02/06; Pt has tightness glut meds with manual RX. Pt c/o L groin pain with piriformis stretch, modified it it resolved. 02/03/24: very limited with interventional tolerance due to co-morbidities. she notes she feels the only thing that will help is manual intervention. 01/31/24: pt progressing well with skilled PT. responds very well to manual intervention. 01/27/24: ITB sore since last visit. started stepper with good response, respect given to L ankle fusion. continue to progress as tolerated. avoid knee hyperextension. 01/23; Pt had c/o L groin pain with LTR. Pt L hip int rot limited and painful. PT L iliac crest elevated and glut larger. Pt HS 90 degrees. Progressed pt as allyssa due to still recovering from covid. [place] stepper Patient is a 73 year old R handed female who presents with s/s consistent with post laminectomy syndrome, low back pain. She does not work and has been fairly sedentary for quite some time. Patient past medical history includes multiple surgeries, including L ankle fusion, HTN, and DM. Current impairments include pain, posture, flexibility, ROM, gait mechanics, strength, activity tolerance and functional mobility. 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 Patient is motivated with good rehab potential. Skilled PT will address impairments and functional limitations in order to achieve goals. Electronically signed by: Germán Blackmon, PT Please sign and return to therapist. Thank you for your referral.
== END 2024-07-31 10:45 | disposition home or self-care (01) ==
LOC: HO.PTCHIC 11:00
PROVIDERS: PCP Internal Medicine; Visit Provider Nurse Practitioner Family
DX: M96.1 Postlaminectomy syndrome, not elsewhere classified (principal); M53.3 Sacrococcygeal disorders, not elsewhere classified; M54.50 Low back pain, unspecified
CPT/HCPCS: 97110; 97140; 97163

== ENCOUNTER 2024-05-30 08:06 | Outpatient (AMB) | payer MEDICARE, SELFPAY ==
--- NOTE | 2024-05-30 08:12 | MHC.OFFVIS ---
Vital Signs 05/30/24 08:14 Height 4 ft 10 in Weight 222 lb BMI 46.4 BP 146/63 H Blood Pressure Location Lt brachial Position Sitting Respiration 14 Pulse 79 Pulse Source Pulse Oximeter Pulse Oximetry (%) 95 Oxygen Delivery Method Room Air Intake Visit Reasons: BILATERAL GTB BURSA INJECTIONS Allergies benzonatate [From TESSALRANCHO PERLES] Allergy (Severe, Verified 05/30/24 08:15) THROAT CLOSES codeine [CODEINE] Allergy (Severe, Verified 05/30/24 08:15) THROAT CLOSES Penicillins [PENICILLINS] Allergy (Intermediate, Verified 05/30/24 08:15) FULL BODY RASH oxycodone Allergy (Unknown, Verified 05/30/24 08:15) Anaphylaxis Medication List - Last Reconciled 05/30/24 by Susan Madsen LPN diclofenac sodium 1% (Arthritis Pain (diclofenac)) 4 grams topical QID glipizide 5 mg PO BID hydrochlorothiazide 25 mg PO DAILY losartan 50 mg PO DAILY meloxicam 7.5 mg PO DAILY metformin 1,000 mg PO BID pioglitazone 30 mg PO DAILY HPI HPI BILATERAL GTB BURSA INJECTIONS: Details: 73-year-old female presents today for bilateral GTB bursa injections. Patient presents for scheduled procedure. Denies any recent cough, cold, infection, fever or other significant changes in medical history since last office visit. Patient had 100% pain relief for 6 months following bilateral therapeutic GTB injection and would like to proceed with GTB injection again today. She was noted to have A1c at 8.2 since therapeutic injections and eventually her A1c went down. She was on Jardiance, but had severe constipation and she is currently on metformin 1000 mg. She was counseled on vigilance in checking and treatment of hyperglycemia following steroid injections. Past Procedures: 11/30/23: Bilateral Therapeutic GTB Injections -100% pain relief for 6 months. 10/12/23: Bilateral Therapeutic Sacroiliac Joint [id number]% pain relief [facility] Medical History Carpal tunnel syndrome Right bundle branch block Polymyalgia rheumatica ALYSSA (obstructive sleep apnea) Hypertension Hyperlipidemia Type 2 diabetes mellitus Surgical History S/P foot surgery, left Social History Alcohol intake: current Alcohol intake frequency: holidays/special occasions only Alcohol type: wine Patient Tobacco Use Status: Never used Tobacco Physical Exam Vital Signs: Last Vital Signs Pulse 79 05/30/24 08:14 Resp 14 05/30/24 08:14 BP 146/63 H 05/30/24 08:14 Pulse Ox 95 05/30/24 08:14 Oxygen Delivery Method Room Air 05/30/24 08:14 BMI result Body Mass Index 46.4 General: Appears afebrile. Alert and oriented. Mood and affect appropriate. Follows and participates in conversation appropriately. Respiratory effort is unlabored. Able to transition from sit to stand unassisted. Ambulates with bilaterally normal heel strike and toe off. Tenderness to palpation overlying bilateral greater trochanteric regions. Office Procedures Joint Injection/Drain Joint Injection/Drain Details: Greater Trochanteric Bursa Injection, Bilateral After informed written consent was obtained, the patient was placed in the lateral position. Pre-procedure oxygen saturation, heart rate, and blood pressure were recorded. The skin was prepped with Chloroprep, and draped in a sterile fashion. With the use of ultrasound the greater trochanter was identified. With a 25-gauge 1.5 hypodermic needle 1% lidocaine was injected subcutaneously over the entry site. A 21-gauge 80mm echostim needle was then advanced toward the trochanteric bursa under US guidance in an in-plane approach. Once in position, and after negative aspiration, 40mg Kenalog mixed with 0.5% ropivcaine (3mL total) was injected. There was no evidence of paresthesias throughout needle placement. The needle was withdrawn. The same procedure was repeated on the other side. The patient tolerated the procedure well and there was no evidence of procedural complications. The patient was observed in the procedure room for 20 minutes, vitals were stable, and discharged in stable condition. Coding 14560 - Glenohumeral/Tronchanteric Bursa/Intraarticular Procedure code (CPT) selection complete Results Reviewed Results Reviewed: 08/16/23: XR LUMBOSACRAL SPINE FINDINGS: There are multilevel degenerative changes with grade 1 anterior listhesis of L4 over L5 with disc space narrowing, and facets arthropathy is at the level of L2-L3, L3-for L4-L5 L5-S1. Pedicles are preserved. Sacroiliac joints unremarkable. Soft tissues are normal. IMPRESSION: Multilevel degenerative changes and grade 1 anterior listhesis of L4 over L5 08/16/23: XR BILATERAL HIPS WITH AP PELVIS FINDINGS: No fracture. Hip joint spaces are maintained. Alignment is anatomic. Sacroiliac joints and pubic symphysis are normal. No abnormal soft tissue calcifications. IMPRESSION: Normal pelvis and hips. Assessment & Plan Assessment & Plan (1) Greater trochanteric bursitis of both hips: Code(s): M70.61 - Trochanteric bursitis, right hip; M70.62 - Trochanteric bursitis, left hip Category: Medical Plan Patient is status post bilateral GTB bursa injection. Patient tolerated procedure well and was discharged home in stable condition with discharge instructions.? All questions were answered. Follow-up as needed. Scribed for Dr. Becerril by [facility] medical doctor, on 05/30/2024. I, Dr. Becerril, have personally reviewed and agree with the information entered by the scribe. Coding Level of Care Code Est Pt Level 3 (48805) Diagnoses Greater trochanteric bursitis of both hips M70.61; M70.62 CPT Codes Coding - Joint 7: 22225 - Glenohumeral/Tronchanteric Bursa/Intraarticular ([id number])
[2024-05-30 08:14] VITALS: BP 146/63; PULSE 79; RESP 14; O2SAT 95; BMI 46.4
== END 2024-05-30 08:42 | disposition home or self-care (01) ==
PROVIDERS: PCP Internal Medicine; Visit Provider Internal Medicine
DX: M70.61 Trochanteric bursitis, right hip (principal); M70.62 Trochanteric bursitis, left hip
CPT/HCPCS: 20611

== ENCOUNTER → 2024-05-30 08:06 | Outpatient (BNVA) | payer MEDICARE, SELFPAY | PROVIDERS: PCP Internal Medicine; Visit Provider Internal Medicine | DX: M70.61 Trochanteric bursitis, right hip (principal); M70.62 Trochanteric bursitis, left hip | CPT/HCPCS: 20611; J2795; J3301 ==

== ENCOUNTER 2024-12-10 10:33 | Outpatient (AMB) | payer MEDICARE, SELFPAY ==
[2024-12-10 10:43] VITALS: BP 141/65; PULSE 86; RESP 16; O2SAT 95; BMI 47.0
--- NOTE | 2024-12-10 10:43 | MHC.OFFVIS ---
Vital Signs 12/10/24 10:43 Height 4 ft 10 in Weight 225 lb BMI 47.0 BP 141/65 H Blood Pressure Location Lt radial Position Sitting Respiration 16 Pulse 86 Pulse Source Pulse Oximeter Pulse Oximetry (%) 95 Oxygen Delivery Method Room Air Intake Visit Reasons: BILATERAL GTB BURSA INJECTIONS Allergies benzonatate [From TESSALON PERLES] Allergy (Severe, Verified 12/10/24 10:44) THROAT CLOSES codeine [CODEINE] Allergy (Severe, Verified 12/10/24 10:44) THROAT CLOSES Penicillins [PENICILLINS] Allergy (Intermediate, Verified 12/10/24 10:44) FULL BODY RASH oxycodone Allergy (Unknown, Verified 12/10/24 10:44) Anaphylaxis Medication List - Last Reconciled 12/10/24 by Susan Madsen LPN diclofenac sodium 1% (Arthritis Pain (diclofenac)) 4 grams topical QID furosemide (Lasix) 20 mg PO DAILY glipizide 5 mg PO BID losartan 50 mg PO DAILY meloxicam 7.5 mg PO DAILY metformin 1,000 mg PO BID pioglitazone 30 mg PO DAILY HPI HPI BILATERAL GTB BURSA INJECTIONS: Details: History of Present Illness The patient is a 74 year old female presenting with bilateral trochanteric bursitis. The condition has been persistent, prompting the decision for therapeutic intervention via bilateral greater trochanteric injections. The patient has a history of symptoms consistent with trochanteric bursitis, characterized by lateral hip pain exacerbated by activity and pressure on the area. The patient previously experienced limited relief with conservative measures, which led to the current treatment plan of ultrasound-guided injections. Prior assessments confirmed the diagnosis, and today?s visit is part of the ongoing management strategy to alleviate symptoms and improve function. Pain Description - Onset & Timing: Persistent lateral hip pain - Quality & Character: Pain consistent with bursitis - Primary Location: Greater trochanter bilaterally - Exacerbating Factors: Activity and pressure on the area Physical Exam Results - Tests and Diagnostics: - Ultrasound guidance utilized during trochanteric bursa injections Pain Management Plan : - Plan for follow-up as needed; Monitor patient?s response to injections. Patient was informed and verbally consented to the use of an ambient scribe for clinic note documentation during this visit. Discussion Notes The patient is instructed to follow-up as necessary based on symptom relief and functionality. Patient Instructions - Monitor for any signs of infection at the injection sites. - Follow up if pain persists or worsens. - Engage in light activities as tolerated, avoiding pressure on the hips initially. - Contact the office if there are concerns or adverse effects from the injections. REPLACED BY [facility] Medical History Carpal tunnel syndrome Right bundle branch block Polymyalgia rheumatica ALYSSA (obstructive sleep apnea) Hypertension Hyperlipidemia Type 2 diabetes mellitus Surgical History S/P foot surgery, left Social History Alcohol intake: current Alcohol intake frequency: holidays/special occasions only Alcohol type: wine Patient Tobacco Use Status: Never used Tobacco Physical Exam Vital Signs: Last Vital Signs Pulse 86 12/10/24 10:43 Resp 16 12/10/24 10:43 BP 141/65 H 12/10/24 10:43 Pulse Ox 95 12/10/24 10:43 Oxygen Delivery Method Room Air 12/10/24 10:43 BMI result Body Mass Index 47.0 Office Procedures AMB Joint Injection/Aspiration Joint Injection/Aspiration Details: Greater Trochanteric Bursa Injection, Bilateral After informed written consent was obtained, the patient was placed in the supine position. Pre-procedure oxygen saturation, heart rate, and blood pressure were recorded. The skin was prepped with Chloroprep, and draped in a sterile fashion. With the use of ultrasound the greater trochanter was identified. A 21-gauge 3.5 needle was then advanced toward the trochanteric bursa. Once in position, and after negative aspiration, 40mg triamcinilone mixed with 0.5% ropivcaine (3mL total). There was no evidence of paresthesias throughout needle placement. The stylet was replaced and then the needle was withdrawn. Same process was repeated on the other side. The patient tolerated the procedure well and there was no evidence of procedural complications. The patient was observed in the procedure room for 20 minutes, vitals were stable, and discharged in stable condition. Ultrasound images were saved to document the procedure. Coding 79781 - Glenohumeral/Tronchanteric Bursa/Intraarticular Procedure code (CPT) selection complete Assessment & Plan Assessment & Plan (1) Greater trochanteric bursitis of both hips: Code(s): M70.61 - Trochanteric bursitis, right hip; M70.62 - Trochanteric bursitis, left hip Category: Medical Plan Patient is status post bilateral GTB injection. Patient tolerated procedure well and was discharged home in stable condition with discharge instructions. All questions were answered. Follow up as needed. Coding Level of Care Code Procedure Only Diagnoses Greater trochanteric bursitis of both hips M70.61; M70.62 CPT Codes Coding - Joint 7: 95416 - Glenohumeral/Tronchanteric Bursa/Intraarticular ([id number])
== END 2024-12-10 11:10 | disposition home or self-care (01) ==
PROVIDERS: PCP Internal Medicine; Visit Provider Internal Medicine
DX: M70.61 Trochanteric bursitis, right hip (principal); M70.62 Trochanteric bursitis, left hip
CPT/HCPCS: 20611

== ENCOUNTER → 2024-12-10 10:33 | Outpatient (BNVA) | payer MEDICARE, SELFPAY | PROVIDERS: PCP Internal Medicine; Visit Provider Internal Medicine | DX: M70.61 Trochanteric bursitis, right hip (principal); M70.62 Trochanteric bursitis, left hip | CPT/HCPCS: 20611; J2795; J3301 ==

== ENCOUNTER 2025-06-19 08:47 | Outpatient (AMB) | payer MEDICARE, SELFPAY ==
--- NOTE | 2025-06-19 09:00 | A.OFFVIS_ITS ---
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 Diesel Roller Operator: Diesel Roller Operator Present Accompanied by: Yordan Cortez Allergies benzonatate (From TESSALON PERLES) Allergy (Severe, Verified 06/19/25 09:04) THROAT CLOSES codeine (CODEINE) Allergy (Severe, Verified 06/19/25 09:04) THROAT CLOSES Penicillins (PENICILLINS) Allergy (Intermediate, Verified 06/19/25 09:04) FULL BODY RASH oxycodone Allergy (Unknown, Verified 06/19/25 09:04) Anaphylaxis Medication List - Last Reconciled 06/19/25 by Susan Madsen LPN hydrochlorothiazide 25 mg PO DAILY losartan 50 mg PO DAILY meloxicam 7.5 mg PO DAILY metformin 1,000 mg PO BID pioglitazone 30 mg PO DAILY tirzepatide (Mounjaro) 2.5 mg subcut QWEEK HPI HPI Dino GTB inj: Details: Patient presents for scheduled procedure. Denies any recent cough, cold, infection, fever or other significant changes in medical history since last office visit. [facility] Medical History Carpal tunnel syndrome Right bundle branch block Polymyalgia rheumatica ALYSSA (obstructive sleep apnea) Hypertension Hyperlipidemia Type 2 diabetes mellitus Surgical History S/P foot surgery, left Social History Alcohol intake: current Alcohol intake frequency: holidays/special occasions only Alcohol type: wine Patient Tobacco Use Status: Never used Tobacco Physical Exam Vital Signs: Last Vital Signs Pulse 101 H 06/19/25 09:03 Resp 16 06/19/25 09:03 BP 158/70 H 06/19/25 09:03 Pulse Ox 95 06/19/25 09:03 Oxygen Delivery Method Room Air 06/19/25 09:03 BMI result Body Mass Index 45.3 Office Procedures AMB Joint Injection/Aspiration Joint Injection/Aspiration Details: Greater Trochanteric Bursa Injection, Bilateral, Ultrasound Guided Informed consent was obtained and time out was performed. The site was prepped with Chloraprep. With the patient in lateral position and the use of ultrasound the greater trochanter was identified. A 21-gauge 3.5 echostim needle was then advanced toward the trochanteric bursa using an inplane technique. Once in position, and after negative aspiration, 40mg triamcinilone mixed with 0.5% ropivcaine (3mL total) was injected. There was no evidence of paresthesias throughout needle placement. The needle was withdrawn. The same process was repeated for the other side. An image of the US guided needle placement was saved to the record. The patient tolerated the procedure well and there was no evidence of procedural complications. The patient was observed in the procedure room for 20 minutes, vitals were stable, and discharged in stable condition. Coding 94139 - Glenohumeral/Tronchanteric Bursa/Intraarticular Procedure code (CPT) selection complete Assessment & Plan Assessment & Plan (1) Greater trochanteric bursitis of both hips: Code(s): M70.61 - Trochanteric bursitis, right hip; M70.62 - Trochanteric bursitis, left hip Category: Medical Plan Patient is status post bilateral GTB injections. Patient tolerated procedure well and was discharged home in stable condition with discharge instructions. All questions were answered. We will follow-up via telephone or in clinic to assess response to therapy. A follow-up appointment was made during today's visit. Orders: Orders US guide needle placement Today M70.61 - Trochanteric bursitis, right hip, M70.62 - Trochanteric bursitis, left hip Coding Level of Care Code Procedure Only Diagnoses Greater trochanteric bursitis of both hips M70.61; M70.62 CPT Codes Coding - Joint 7: 48778 - Glenohumeral/Tronchanteric Bursa/Intraarticular ([id number])
[2025-06-19 09:03] VITALS: BP 158/70; PULSE 101; RESP 16; O2SAT 95; BMI 45.3
== END 2025-06-19 09:53 | disposition home or self-care (01) ==
LOC: HO.PMC 08:48
PROVIDERS: PCP Internal Medicine; Visit Provider Internal Medicine
DX: M70.61 Trochanteric bursitis, right hip (principal); M70.62 Trochanteric bursitis, left hip
CPT/HCPCS: 20611

== ENCOUNTER → 2025-06-19 08:47 | Outpatient (BNVA) | payer MEDICARE, SELFPAY | PROVIDERS: PCP Internal Medicine; Visit Provider Internal Medicine | DX: M70.61 Trochanteric bursitis, right hip (principal); M70.62 Trochanteric bursitis, left hip | CPT/HCPCS: 20611; J2795; J3301 ==